=== PATIENT | female | born 1980 | race African-American/Black ===

== ENCOUNTER 2021-04-21 11:15 | Inpatient (IN) ==
[2021-04-21] MEDS ORDERED: SODIUM CHLORIDE 0.9% 1,000 ML IV STA ×3 (13:31→16:33)
[2021-04-21] MEDS ORDERED: HYDROmorphone 2 MG/1 ML VIAL IV STA ×2 (14:14→15:41)
[2021-04-21] MEDS ORDERED: ONDANSETRON 4 MG/2 ML VIAL IV ONE (14:14)
[2021-04-21] MEDS ORDERED: KETOROLAC 30 MG/1 ML VIAL IV STA (14:15)
[2021-04-21 14:35] LABS: Basophils % 0.2 % (0.0-0.8); Hemoglobin 9.9 GM/DL (12.0-16.0); Immature Granulocytes % 5.1 %; Lymphocytes % 4.1 % (21.3-54.2); Mean Corpuscular HGB Conc 30.9 GM/DL (32-36); Mean Corpuscular Volume 81.2 FL (87-102); Mean Platelet Volume 10.4 FL (9.6-12.0); Monocytes % 3.2 % (1.7-12.7); Neutrophils % 87.4 % (38.7-73.9); Platelet Count 441 T/CUMM (130-400); Red Blood Count 3.94 MC/CUMM (3.8-5.5); Red Cell Distribution Width 16.4 % (9.3-17.3); White Blood Count 23.4 T/CUMM (4-12)
[2021-04-21 14:54] LABS: Bilirubin,Total 0.8 MG/DL (0.20-1.00); Calcium 9.1 MG/DL (8.5-10.1); Osmolality,Calculated 270.2 MOS/KG (273-304); Potassium 4.7 MMOL/L (3.5-5.1); Total Protein 8.1 G/DL (6.4-8.2)
[2021-04-21] MEDS ORDERED: HYDROmorphone 2 MG/1 ML VIAL ONE (15:11)
[2021-04-21 15:27] LABS: Band Neutrophils 8 % (0-10); Lymphocytes 5 % (20-55); Platelet Estimate Normal; Segmented Neutrophils 82 % (50-85); Total Cells Counted 100
[2021-04-21 15:50] LABS: Bacteria,Urine Occasional /HPF (Few); Bilirubin,Urine Negative (Negative); Blood, Urine Negative (Negative); Glucose,Urine (UA) Negative (Negative); Ketones,Urine Negative (Negative); Mucus,Urine Many /LPF (Occasional); Nitrite,Urine Negative (Negative); Protein,Urine 30 MG/DL; RBC,Urine 9 /HPF (0-4); Squamous Epithelial Cell,Urine Occasional /HPF (0-10); Urine Appearance Slightly Hazy (Clear); Urine Color Amber (Yellow); Urine Specific Gravity 1.026 (1.001-1.035); Urine Urobilinogen < 2.0 EU/DL (0.2-1.0)
[2021-04-21] MEDS ORDERED: PIPERACILLIN/TAZOBACTAM 3,375 MG in SODIUM CHLORIDE 0.9% 100 ML IV STA ×2 (16:33→16:35)
[2021-04-21] MEDS ORDERED: DEXTROSE 50% 25 GM/50 ML VIAL IV PRN (16:52)
[2021-04-21] MEDS ORDERED: GLUCAGON 1 MG VIAL IM PRN (16:52)
[2021-04-21] MEDS: ENOXAPARIN 40 MG/0.4 ML SYRINGE SUBCUT SCH (17:26)
[2021-04-21] MEDS: SODIUM CHLORIDE 0.9% 1,000 ML IV STA (17:28)
[2021-04-21 18:16] LABS: Thyroid Stimulating Hormone 0.25 uIU/ml (0.358-3.74)
[2021-04-21] MEDS: ACETAMINOPHEN 325 MG TABLET PO PRN (18:45)
[2021-04-21] MEDS ORDERED: VANCOMYCIN INJ 2,000 MG in SODIUM CHLORIDE 0.9% 500 ML IV ONE (19:00)
[2021-04-21] MEDS ORDERED: MAGNESIUM SULF RIDER 4 GM/100 ML PREMIX IV PRN (20:59)
[2021-04-21] MEDS ORDERED: MAGNESIUM SULF RIDER 2 GM/50 ML PREMIX IV PRN (20:59)
[2021-04-21] MEDS: LACTATED RINGERS 1,000 ML IV SCH (23:04)
[2021-04-22] MEDS: SODIUM CHLORIDE 0.9% 1,000 ML IV STA (01:39)
[2021-04-22 01:56] LABS: Calcium 7.8 MG/DL (8.5-10.1); Osmolality,Calculated 277.7 MOS/KG (273-304); Potassium 3.7 MMOL/L (3.5-5.1)
[2021-04-22 02:48] LABS: Basophils # 0.1 10*3/uL (0.0-0.2); Basophils % 0.2 % (0.0-0.8); Hematocrit 26.4 VOL% (35.7-47.0); Immature Granulocytes % 3.2 %; Immature Granulocytes Absolute 0.74 #; Lymphocytes # 1.5 10*3/uL (1.4-4.0); Lymphocytes % 6.6 % (21.3-54.2); Mean Corpuscular HGB Conc 30.3 GM/DL (32-36); Mean Corpuscular Volume 83.3 FL (87-102); Mean Platelet Volume 9.6 FL (9.6-12.0); Monocytes % 5.2 % (1.7-12.7); Neutrophils % 84.8 % (38.7-73.9); Platelet Count 292 T/CUMM (130-400); Red Blood Count 3.17 MC/CUMM (3.8-5.5); Red Cell Distribution Width 16.7 % (9.3-17.3); White Blood Count 23.5 T/CUMM (4-12)
[2021-04-22 04:09] LABS: Band Neutrophils 1 % (0-10); Hypochromasia 1+; Lymphocytes 11 % (20-55); Microcytosis 1+; Platelet Estimate Adequate; Segmented Neutrophils 84 % (50-85); Total Cells Counted 100
[2021-04-22] MEDS: LACTATED RINGERS 1,000 ML IV SCH ×3 (05:16→17:57)
[2021-04-22] MEDS ORDERED: VANCOMYCIN INJ 2,000 MG in SODIUM CHLORIDE 0.9% 500 ML IV SCH (07:00)
[2021-04-22] MEDS ORDERED: PIPERACILLIN/TAZOBACTAM 3,375 MG in SODIUM CHLORIDE 0.9% 100 ML IV SCH (09:00)
[2021-04-22] MEDS: ACETAMINOPHEN 325 MG TABLET PO PRN (12:34)
[2021-04-22] MEDS: ENOXAPARIN 40 MG/0.4 ML SYRINGE SUBCUT SCH (16:20)
[2021-04-22] MEDS: cefTRIAXone 2,000 MG in SODIUM CHLORIDE 0.9% 100 ML IV SCH (17:51)
[2021-04-22] MEDS: ONDANSETRON 4 MG/2 ML VIAL IV PRN (20:24)
[2021-04-22] MEDS: DOXYCYCLINE HYCLATE 100 MG CAPSULE PO SCH (20:59)
[2021-04-23] MEDS: LACTATED RINGERS 1,000 ML IV SCH ×3 (00:03→16:53)
[2021-04-23] MEDS: ONDANSETRON 4 MG/2 ML VIAL IV PRN ×2 (02:31→16:54)
[2021-04-23 05:31] LABS: Basophils % 0.1 % (0.0-0.8); Eosinophils # 0.1 10*3/uL (0.0-0.87); Eosinophils % 0.3 % (0.00-10.9); Hematocrit 26.4 VOL% (35.7-47.0); Hemoglobin 8.1 GM/DL (12.0-16.0); Immature Granulocytes Absolute 0.17 #; Lymphocytes # 1.5 10*3/uL (1.4-4.0); Lymphocytes % 8.6 % (21.3-54.2); Mean Corpuscular HGB Conc 30.7 GM/DL (32-36); Mean Corpuscular Volume 82.8 FL (87-102); Mean Platelet Volume 9.6 FL (9.6-12.0); Monocytes % 5.1 % (1.7-12.7); Neutrophils % 84.9 % (38.7-73.9); Platelet Count 278 T/CUMM (130-400); Red Blood Count 3.19 MC/CUMM (3.8-5.5); Red Cell Distribution Width 16.4 % (9.3-17.3); White Blood Count 17.7 T/CUMM (4-12)
[2021-04-23 05:59] LABS: Calcium 8.1 MG/DL (8.5-10.1); Osmolality,Calculated 279.4 MOS/KG (273-304); Potassium 3.5 MMOL/L (3.5-5.1)
[2021-04-23 06:12] LABS: Hypochromasia 1+; Lymphocytes 10 % (20-55); Microcytosis 1+; Ovalocytes Slight; Platelet Estimate Adequate; Segmented Neutrophils 87 % (50-85); Total Cells Counted 100
[2021-04-23] MEDS: DOXYCYCLINE HYCLATE 100 MG CAPSULE PO SCH ×2 (10:22→21:21)
[2021-04-23] MEDS: PANTOPRAZOLE 40 MG TABLET PO SCH (10:23)
[2021-04-23] MEDS: cefTRIAXone 2,000 MG in SODIUM CHLORIDE 0.9% 100 ML IV SCH ×2 (10:23→13:48)
[2021-04-23] MEDS: ENOXAPARIN 40 MG/0.4 ML SYRINGE SUBCUT SCH (16:53)
[2021-04-24] MEDS: LACTATED RINGERS 1,000 ML IV SCH (05:30)
[2021-04-24 05:52] LABS: Basophils % 0.3 % (0.0-0.8); Eosinophils % 0.4 % (0.00-10.9); Hematocrit 26.2 VOL% (35.7-47.0); Immature Granulocytes % 0.7 %; Immature Granulocytes Absolute 0.07 #; Lymphocytes # 1.7 10*3/uL (1.4-4.0); Lymphocytes % 17.1 % (21.3-54.2); Mean Corpuscular HGB Conc 30.5 GM/DL (32-36); Mean Corpuscular Volume 81.6 FL (87-102); Monocytes % 5.6 % (1.7-12.7); Neutrophils % 75.9 % (38.7-73.9); Platelet Count 343 T/CUMM (130-400); Red Blood Count 3.21 MC/CUMM (3.8-5.5); Red Cell Distribution Width 16.4 % (9.3-17.3); White Blood Count 10.1 T/CUMM (4-12)
[2021-04-24 06:17] LABS: Calcium 8.4 MG/DL (8.5-10.1); Free T4 (Free Thyroxine) 1.23 NG/DL (0.76-1.46); Osmolality,Calculated 280.1 MOS/KG (273-304); Potassium 3.6 MMOL/L (3.5-5.1); Thyroid Stimulating Hormone 2.04 uIU/ml (0.358-3.74)
[2021-04-24] MEDS ORDERED: MAGNESIUM SULF RIDER 2 GM/50 ML PREMIX IV ONE (07:09)
[2021-04-24] MEDS: cefTRIAXone 2,000 MG in SODIUM CHLORIDE 0.9% 100 ML IV SCH (09:12)
[2021-04-24] MEDS: PANTOPRAZOLE 40 MG TABLET PO SCH (09:13)
[2021-04-24] MEDS: DOXYCYCLINE HYCLATE 100 MG CAPSULE PO SCH ×2 (09:13→20:33)
[2021-04-24] MEDS: IBUPROFEN 600 MG TABLET PO SCH ×3 (11:52→20:33)
[2021-04-24] MEDS: ENOXAPARIN 40 MG/0.4 ML SYRINGE SUBCUT SCH (16:04)
[2021-04-25 06:36] LABS: Basophils % 0.3 % (0.0-0.8); Eosinophils # 0.1 10*3/uL (0.0-0.87); Eosinophils % 1.3 % (0.00-10.9); Hemoglobin 8.6 GM/DL (12.0-16.0); Immature Granulocytes % 2.3 %; Immature Granulocytes Absolute 0.14 #; Lymphocytes % 32.6 % (21.3-54.2); Mean Corpuscular HGB Conc 30.7 GM/DL (32-36); Mean Corpuscular Volume 81.9 FL (87-102); Mean Platelet Volume 9.7 FL (9.6-12.0); Monocytes % 9.5 % (1.7-12.7); Platelet Count 390 T/CUMM (130-400); Red Blood Count 3.42 MC/CUMM (3.8-5.5); Red Cell Distribution Width 16.4 % (9.3-17.3)
[2021-04-25 07:10] LABS: Calcium 8.3 MG/DL (8.5-10.1); Osmolality,Calculated 281.1 MOS/KG (273-304); Potassium 3.9 MMOL/L (3.5-5.1)
[2021-04-25 07:38] LABS: Eosinophils 2 % (0-10); Hypochromasia 1+; Lymphocytes 37 % (20-55); Microcytosis 1+; Platelet Estimate Adequate; Segmented Neutrophils 58 % (50-85); Total Cells Counted 100
[2021-04-25] MEDS: PANTOPRAZOLE 40 MG TABLET PO SCH (08:45)
[2021-04-25] MEDS: DOXYCYCLINE HYCLATE 100 MG CAPSULE PO SCH ×2 (08:45→20:32)
[2021-04-25] MEDS: KETOROLAC 30 MG/1 ML VIAL IV PRN ×2 (08:46→17:09)
[2021-04-25] MEDS: cefTRIAXone 2,000 MG in SODIUM CHLORIDE 0.9% 100 ML IV SCH (08:49)
[2021-04-25] MEDS: ENOXAPARIN 40 MG/0.4 ML SYRINGE SUBCUT SCH (17:06)
[2021-04-26 05:11] LABS: Basophils % 0.5 % (0.0-0.8); Eosinophils # 0.1 10*3/uL (0.0-0.87); Hemoglobin 9.1 GM/DL (12.0-16.0); Immature Granulocytes % 3.6 %; Immature Granulocytes Absolute 0.24 #; Lymphocytes % 29.6 % (21.3-54.2); Mean Corpuscular HGB Conc 30.3 GM/DL (32-36); Mean Corpuscular Volume 81.3 FL (87-102); Mean Platelet Volume 9.8 FL (9.6-12.0); Monocytes % 11.2 % (1.7-12.7); Neutrophils % 53.1 % (38.7-73.9); Platelet Count 425 T/CUMM (130-400); Red Blood Count 3.69 MC/CUMM (3.8-5.5); Red Cell Distribution Width 16.1 % (9.3-17.3); White Blood Count 6.6 T/CUMM (4-12)
[2021-04-26 05:32] LABS: Calcium 8.8 MG/DL (8.5-10.1); Osmolality,Calculated 277.4 MOS/KG (273-304)
[2021-04-26] MEDS: cefTRIAXone 2,000 MG in SODIUM CHLORIDE 0.9% 100 ML IV SCH (08:52)
[2021-04-26] MEDS: DOXYCYCLINE HYCLATE 100 MG CAPSULE PO SCH (08:53)
[2021-04-26] MEDS: PANTOPRAZOLE 40 MG TABLET PO SCH (08:53)
[2021-04-26] MEDS: KETOROLAC 30 MG/1 ML VIAL IV PRN (08:53)
[2021-04-26 11:58] VITALS: BP 135/77
== END 2021-04-26 15:49 | disposition home health service (06) | DRG 867 ==
LOC: N.ED 11:15 → N.EDINP 16:47 → N.5E 21:30
PROVIDERS: ADMIT Internal Medicine; ATTEND Internal Medicine